=== PATIENT | female | born 2000 | race African-American/Black ===

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

== ENCOUNTER 2022-02-02 01:48 | Emergency (ER) | payer OTHER, SELFPAY ==
[~2022-02-02] VITALS: Ht 160 cm; Wt 63.1 kg
[~2022-02-02 01:48] MED LIST: ALLE1TAB23 PO; HYDR25OIN TOP; LORY1TAB2 PO
[2022-02-03] MEDS ORDERED: KETOROLAC 30 MG/ML 1ML VIAL IM ONE (01:05)
[2022-02-03] MEDS ORDERED: ACETAMINOPHEN 500 MG TAB PO ONE (01:10)
[2022-02-03 02:37] VITALS: BP 132/82
== END 2022-02-03 02:41 | disposition home or self-care (01) ==
LOC: M ED 01:48
DX: R07.9 Chest pain, unspecified (principal); M94.0 Chondrocostal junction syndrome [Tietze]